=== PATIENT | female | born 1955 | race Caucasian/White ===

== ENCOUNTER 2024-11-06 12:57 | Outpatient (AMB) | payer MEDICARE, SELFPAY ==
[2024-11-06 13:21] VITALS: BP 159/80; PULSE 74; RESP 19; TEMP 36.3; O2SAT 93; BMI 34.0
--- NOTE | 2024-11-06 13:21 | RHCORTHONT_ITS ---
Vital signs 11/06/24 13:21 Height 1.6 m Height Method Stated Weight 87.231 kg Weight Measurement Method Standing Scale BMI 34.0 BP 159/80 H Blood Pressure Source Automatic Cuff Blood Pressure Location Left Upper Arm Position Sitting Respiration 19 Pulse 74 Pulse Source Monitor Temp 97.3 F Temp Source Temporal Artery Scan Pulse Oximetry (%) 93 L Oxygen Delivery Method Room Air Med/Allergies Allergies & Medications Allergies No Known Allergies Allergy (Verified 11/06/24 13:23) Medication Reconciliation ascorbic acid (vitamin C) 1,000 mg tablet 1 g PO Q6H 11/01/23 [History Confirmed 11/06/24] atenolol 25 mg tablet 25 mg PO QDAY 11/01/23 [History Confirmed 11/06/24] esomeprazole magnesium 40 mg capsule,delayed release 40 mg PO QDAY 11/01/23 [History Confirmed 11/06/24] famotidine 20 mg tablet 20 mg PO QDAY 11/01/23 [History Confirmed 11/06/24] Exam Exam Patient is in no acute distress and is cooperative with the examination today. Patient has a normal mood and affect. Breathing is nonlabored. In no respiratory distress. Bilateral extremities were evaluated and demonstrates sensation intact to light touch. Palpable pedal pulses are present. No significant edema is present. She Right knee incision is clean dry intact. Range of motion is 0 to 105 degrees X-rays from [facility] were reviewed by me today. This demonstrates a cemented right total knee replacement good alignment position. There is some radiolucencies on the femur. We will monitor this closely Assessment and Plan Problem List (1) History of total right knee replacement: Status: Acute Plan: Patient is doing well status post right total knee replacement 2 year ago. She reports that she has no pain at all. Given the radiolucency is noted on the femur, I will get repeat x-rays. It does not look extremely concerning but we will continue to monitor this with time. She has no pain at all. 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 (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) [place] Intake Visit Data Collection New Patient or Established: New Patient (never been to [facility]) Reason for Visit:: 1 YEAR FOLLOW UP RIGHT TKA Seen by Clinical Staff ONLY (RN/MA): No Math Specialist Required: No PCP or OBGYN visit in last 3 months: Yes Hx Now: No Do You Feel Safe at Home: Yes Authorities Contacted: N/A Questionairres Past Medical History Past Medical History Have you ever been diagnosed with any of the following: Subjective Visit Visit for: new patient, follow up visit and knee (RIGHT TKA) Immunization / Flu Flu Vaccine in the Last 12 Months: No Flu Vaccine Exclusion Criteria: Already Received History of Present Illness Chief complaint: Right knee pain Kiki is a pleasant 69-year-old female who is 2 years status post right total knee replacement. She reports that she has no right knee pain at all and is very happy Pain Pain level (0-10): 0 Associated signs & symptoms: numbness Ambulatory data Ambulatory device: none Treatments Improvement with previous injections: No Improvement with PT: No Improvement with NSAIDS: no Review of Systems Review of Systems: All systems negative unless otherwise noted in HPI.
== END 2024-11-06 13:52 | disposition home or self-care (01) ==
LOC: HODSRG 12:57
PROVIDERS: PCP Family Medicine; Referring Provider Family Medicine; Supervising Provider Orthopaedic Surgery Adult Reconstructive Orthopaedic Surgery; Visit Provider Orthopaedic Surgery Adult Reconstructive Orthopaedic Surgery
DX: Z96.651 Presence of right artificial knee joint (principal)
CPT/HCPCS: 99203; G0463

== ENCOUNTER 2025-04-30 12:56 | Outpatient (AMB) | payer MEDICARE, SELFPAY ==
[2025-04-30 13:06] VITALS: BP 131/80; PULSE 67; RESP 19; TEMP 36.3; O2SAT 95; BMI 34.5
--- NOTE | 2025-04-30 13:06 | ORTHONT_ITS ---
Vital signs 04/30/25 13:06 Height 1.6 m Height Method Stated Weight 88.536 kg Weight Measurement Method Standing Scale BMI 34.5 BP 131/80 H Blood Pressure Source Automatic Cuff Blood Pressure Location Right Upper Arm Position Sitting Respiration 19 Pulse 67 Pulse Source Monitor Temp 97.3 F Temp Source Temporal Artery Scan Pulse Oximetry (%) 95 Oxygen Delivery Method Room Air Med/Allergies Allergies & Medications Allergies Sulfa (Sulfonamide Antibiotics) Allergy (Verified 04/30/25 13:08) Medication Reconciliation ascorbic acid (vitamin C) 1,000 mg tablet 1 g PO Q6H 11/01/23 [History Confirmed 04/30/25] atenolol 25 mg tablet 25 mg PO QDAY 11/01/23 [History Confirmed 04/30/25] esomeprazole magnesium 40 mg capsule,delayed release 40 mg PO QDAY 11/01/23 [History Confirmed 04/30/25] famotidine 20 mg tablet 20 mg PO QDAY 11/01/23 [History Confirmed 04/30/25] Exam Exam . Patient is in no acute distress and is cooperative with the examination today. Patient has a normal mood and affect. Breathing is nonlabored. In no respiratory distress. Bilateral extremities were evaluated and demonstrates sensation intact to light touch. Palpable pedal pulses are present. No significant edema is present. She Right knee incision is clean dry intact. Range of motion is 0 to 105 degrees X-rays from [facility] were reviewed by me today. This demonstrates a cemented right total knee replacement good alignment position. This is from 04/25/2025 Assessment and Plan Problem List (1) History of total right knee replacement: Status: Acute Plan: Patient is doing well status post right total knee replacement 2 year ago. She reports that she has no pain at all. We will see her in approximately 2 years for routine follow-up Advanced Care Planning Discussion Advance care planning discussed with:: patient Office Procedures GNS Level of Care Nursing/Assessment Patient Status: Established Patient Nursing Assessment/Reassesment: Medication Reconciliation, Update PMH in EMR and Vital Signs Coordination of Care: Complex Care and Chronic Disease 1-5, Education Complex Pt/Fam, Consent,records obtained, informed consent, Results/Orders obtained and Staff clarify orders Established Patient Charge Established Patient Point Assignment: 95 Established Patient Point Charge: EP Level 3 (80-115) LA Intake Visit Data Collection New Patient or Established: Established Patient (seen at [facility] within 3 years) Reason for Visit:: F/U 2 YEAR RT TKA Seen by Clinical Staff ONLY (RN/MA): No Verbal consent obtained for Telemed visit?: No Cafeteria Or Lunchroom Checker Required: No PCP or OBGYN visit in last 3 months: Yes Hx Now: No Do You Feel Safe at Home: Yes Authorities Contacted: N/A Questionairres Past Medical History Past Medical History Have you ever been diagnosed with any of the following: Subjective Visit Visit for: follow up visit and knee Immunization / Flu Flu Vaccine in the Last 12 Months: No Flu Vaccine Exclusion Criteria: No Exclusion Criteria History of Present Illness Chief complaint: 2 YEAR F/U RT TKA Kiki is a pleasant 69-year-old female who is 2.5 years status post right total knee replacement. She reports that she has no right knee pain at all and is very happy Personal History Occupation: RETIRED Red flag PMH: BMI Pain Pain level (0-10): 0 Associated signs & symptoms: numbness Ambulatory data Ambulatory device: none Treatments Improvement with previous injections: No Improvement with PT: No Improvement with NSAIDS: no Review of Systems Review of Systems: All systems negative unless otherwise noted in HPI.
== END 2025-04-30 13:12 | disposition home or self-care (01) ==
LOC: HODSRG 12:56
PROVIDERS: PCP Family Medicine; Referring Provider Family Medicine; Supervising Provider Orthopaedic Surgery Adult Reconstructive Orthopaedic Surgery; Visit Provider Orthopaedic Surgery Adult Reconstructive Orthopaedic Surgery
DX: Z96.651 Presence of right artificial knee joint (principal)
CPT/HCPCS: 99213; G0463